=== PATIENT | female | born 1940 | race Caucasian/White ===

== ENCOUNTER 2017-09-08 13:22 | Emergency (ER) ==
[~2017-09-08] VITALS: Ht 170.2 cm; Wt 75.0 kg
[2017-09-08 13:24] VITALS: BP 194/88; PULSE 52; RESP 16; TEMP 97.9
[2017-09-08] MEDS ORDERED: SODIUM CHLOR 0.9% 1000 ML INJ 1,000 ML IV ONE (13:35)
--- NOTE | 2017-09-08 13:40 | PD ---
HPI Chief Complaint: Cardiac Complaint Time Seen by Provider: 13:31 Travel History International Travel<30 days: No Contact w/Intl Traveler<30days: No Traveled to known affect area: No History of Present Illness HPI The patient is a 77-year-old female who presents to the emergency department via EMS after near syncopal episode. The patient was sitting on the toilet, with a toilet seat clothes, while her daughter fixed her hair. The patient and her daughter had planned on going shopping. However, the patient was sitting when she suddenly became diaphoretic, nauseated, and felt like she was going to pass out. The patient denies any actual loss of consciousness, states she became nauseated and diaphoretic and when fire rescue arrived they noted that the patient's blood pressure was low and her heart rate was in the 50s. When EMS arrived they stated that the patient's heart rate would had normalized and her blood pressure had normalized and her symptoms had resolved. The patient denied any chest pain or shortness of breath. The patient was called a STEMI in the field for left bundle-branch block, unsure if the patient has a history of left bundle-branch block. The patient does have a history of previous CVA, hypertension, and hyperlipidemia. Upon arrival the patient denies any chest pain, shortness of breath, and states her symptoms including nausea and diaphoresis have resolved. PFSH Past Medical History High Cholesterol: Yes Cerebrovascular Accident: Yes Hypertension: Yes Past Surgical History Appendectomy: Yes Social History Alcohol Use: No Tobacco Use: No Substance Use: No Allergies-Medications (Allergen,Severity, Reaction): Coded Allergies: No Known Allergies (Unverified , 09/08/17) Reported Meds & Prescriptions Reported Meds & Active Scripts Active Reported Atorvastatin (Atorvastatin Calcium) Unknown Strength Tab Unknown Dose PO HS Xanax (Alprazolam) 0.5 Mg Tab 0.5 Mg PO HS Xanax (Alprazolam) 0.25 Mg Tab 0.25 Mg PO BID Coreg (Carvedilol) 6.25 Mg Tab 6.25 Mg PO BID Aspirin 81 Mg Chew 81 Mg CHEW DAILY B-12 (Cyanocobalamin) 1,000 Mcg Subl 1,000 Mcg SL DAILY Vitamin D3 (Cholecalciferol) 5,000 Unit Cap 5,000 Units PO DAILY Calcium 500 +D (Calcium Carbonate-Cholecalciferol) 500-400 Mg-Unit Tab 1 Tab PO DAILY Review of Systems Except as stated in HPI: all other systems reviewed are Neg General / Constitutional: No: Fever HENT: No: Lightheadedness Cardiovascular: Positive: Diaphoresis, Syncope (near-syncope), No: Chest Pain or Discomfort, Palpitations, Irregular Rhythm, Tachycardia Respiratory: No: Shortness of Breath Gastrointestinal: Positive: Nausea, No: Vomiting, Abdominal Pain Neurologic: Positive: Syncope (near-syncope), No: Dizziness Physical Exam Narrative GENERAL: Awake, alert, 77-year-old female who appears her stated age and is in no acute respiratory distress. SKIN: Focused skin assessment warm/dry. HEAD: Atraumatic. Normocephalic. EYES: No injection or drainage. ENT: No nasal bleeding or discharge. Mucous membranes pink and moist. NECK: Trachea midline. No JVD. CARDIOVASCULAR: Regular rate and rhythm. No murmur appreciated. RESPIRATORY: No accessory muscle use. Clear to auscultation. Breath sounds equal bilaterally. GASTROINTESTINAL: Abdomen soft, non-tender, nondistended. No rebound tenderness. MUSCULOSKELETAL: No obvious deformities. No clubbing. No cyanosis. No edema. NEUROLOGICAL: Awake and alert. No obvious cranial nerve deficits. Motor grossly within normal limits. Normal speech. Nonfocal. PSYCHIATRIC: Appropriate mood and affect; insight and judgment normal. Data Data Last Documented VS Vital Signs Date Time Temp Pulse Resp B/P (MAP) Pulse Ox O2 Delivery O2 Flow Rate FiO2 09/08/17 15:05 55 20 216/83 (127) 98 Room Air 09/08/17 13:24 97.9 Orders Orders Complete Blood Count With Diff (09/08/17 13:35) Comprehensive Metabolic Panel (09/08/17 13:35) Magnesium (Mg) (09/08/17 13:35) Ckmb (Isoenzyme) Profile (09/08/17 13:35) Troponin I (09/08/17 13:35) Chest, Single Ap (09/08/17 13:35) Ecg Monitoring (09/08/17 13:35) Iv Access Insert/Monitor (09/08/17 13:35) Oximetry (09/08/17 13:35) Sodium Chloride 0.9% Flush (Ns Flush) (09/08/17 13:45) Sodium Chlor 0.9% 1000 Ml Inj (Ns 1000 M (09/08/17 13:35) Orthostatic Vital Signs (09/08/17 13:35) Ondansetron Inj (Zofran Inj) (09/08/17 13:45) Electrocardiogram (09/08/17 13:27) Labs Laboratory Tests Test 09/08/17 13:50 White Blood Count 7.3 TH/MM3 Red Blood Count 4.37 MIL/MM3 Hemoglobin 12.6 GM/DL Hematocrit 36.6 % Mean Corpuscular Volume 83.9 FL Mean Corpuscular Hemoglobin 28.9 PG Mean Corpuscular Hemoglobin Concent 34.5 % Red Cell Distribution Width 13.4 % Platelet Count 197 TH/MM3 Mean Platelet Volume 9.3 FL Neutrophils (%) (Auto) 51.4 % Lymphocytes (%) (Auto) 38.4 % Monocytes (%) (Auto) 8.4 % Eosinophils (%) (Auto) 1.1 % Basophils (%) (Auto) 0.7 % Neutrophils # (Auto) 3.7 TH/MM3 Lymphocytes # (Auto) 2.8 TH/MM3 Monocytes # (Auto) 0.6 TH/MM3 Eosinophils # (Auto) 0.1 TH/MM3 Basophils # (Auto) 0.1 TH/MM3 CBC Comment DIFF FINAL Differential Comment Blood Urea Nitrogen 22 MG/DL Creatinine 0.83 MG/DL Random Glucose 91 MG/DL Total Protein 6.8 GM/DL Albumin 3.6 GM/DL Calcium Level 9.0 MG/DL Magnesium Level 2.2 MG/DL Alkaline Phosphatase 90 U/L Aspartate Amino Transf (AST/SGOT) 22 U/L Alanine Aminotransferase (ALT/SGPT) 22 U/L Total Bilirubin 0.7 MG/DL Sodium Level 138 MEQ/L Potassium Level 3.8 MEQ/L Chloride Level 104 MEQ/L Carbon Dioxide Level 27.7 MEQ/L Anion Gap 6 MEQ/L Estimat Glomerular Filtration Rate 67 ML/MIN Total Creatine Kinase 93 U/L Troponin I LESS THAN 0.02 NG/ML MDM Medical Decision Making Medical Screen Exam Complete: Yes Emergency Medical Condition: Yes Medical Record Reviewed: Yes Interpretation(s) EKG reveals sinus bradycardia with a heart rate of 53. Left bundle-branch block. No old EKG to compare. Laboratory Tests Test 09/08/17 13:50 White Blood Count 7.3 TH/MM3 Red Blood Count 4.37 MIL/MM3 Hemoglobin 12.6 GM/DL Hematocrit 36.6 % Mean Corpuscular Volume 83.9 FL Mean Corpuscular Hemoglobin 28.9 PG Mean Corpuscular Hemoglobin Concent 34.5 % Red Cell Distribution Width 13.4 % Platelet Count 197 TH/MM3 Mean Platelet Volume 9.3 FL Neutrophils (%) (Auto) 51.4 % Lymphocytes (%) (Auto) 38.4 % Monocytes (%) (Auto) 8.4 % Eosinophils (%) (Auto) 1.1 % Basophils (%) (Auto) 0.7 % Neutrophils # (Auto) 3.7 TH/MM3 Lymphocytes # (Auto) 2.8 TH/MM3 Monocytes # (Auto) 0.6 TH/MM3 Eosinophils # (Auto) 0.1 TH/MM3 Basophils # (Auto) 0.1 TH/MM3 CBC Comment DIFF FINAL Differential Comment Blood Urea Nitrogen 22 MG/DL Creatinine 0.83 MG/DL Random Glucose 91 MG/DL Total Protein 6.8 GM/DL Albumin 3.6 GM/DL Calcium Level 9.0 MG/DL Magnesium Level 2.2 MG/DL Alkaline Phosphatase 90 U/L Aspartate Amino Transf (AST/SGOT) 22 U/L Alanine Aminotransferase (ALT/SGPT) 22 U/L Total Bilirubin 0.7 MG/DL Sodium Level 138 MEQ/L Potassium Level 3.8 MEQ/L Chloride Level 104 MEQ/L Carbon Dioxide Level 27.7 MEQ/L Anion Gap 6 MEQ/L Estimat Glomerular Filtration Rate 67 ML/MIN Total Creatine Kinase 93 U/L Troponin I LESS THAN 0.02 NG/ML Chest x-ray reveals no acute cardio pulmonary disease. Differential Diagnosis Differential diagnosis includes near-syncope, arrhythmia, dysrhythmia, vasovagal syncope, cardiogenic syncope, ACS, electrolyte abnormality, dehydration. Narrative Course IV was established, labs are drawn and sent, and the patient was placed on cardiac telemetry monitoring and continuous pulse oximetry monitoring. EKG was ordered and interpreted. Orthostatic vital signs were obtained. The patient was administered IV fluids and Zofran. EKG reveals left bundle branch block. Orthostatic vital signs are unremarkable. Patient's laboratory evaluation is unremarkable. The patient is currently asymptomatic. It appears the patient had a vagal type near-syncope, denied any chest pain. She denies any chest pain upon arrival to troponin is negative. I had a discussion with the patient , she preferred to be discharged home. She will be discharged home with family. His advised return if symptoms worsen or progress. The patient was able to ambulate. The patient may benefit from outpatient echocardiogram, however, is no audible murmur and no history of aortic stenosis. Diagnosis Primary Impression: Near syncope Admitting Information Admitting Physician Requests: Observation Patient Instructions: General Instructions Additional Instructions: Please provide a patient a copy of her EKG and lab results at discharge. Follow -up with a primary physician. Return if symptoms worsen or progress. Med/Other Pt SpecificInfo: No Change to Meds Disposition: 01 DISCHARGE HOME Condition: Stable Luis Fernando Hernandes MD Sep 08, 2017 13:40
[2017-09-08] MEDS ORDERED: SODIUM CHLORIDE 0.9% FLUSH 10 ML FLUSH IVF PRN (13:45)
[2017-09-08] MEDS ORDERED: ONDANSETRON HCL 4 MG/2 ML VIAL IV PUSH ONE (13:45)
[2017-09-08] MEDS ORDERED: ATOR10TA15 PO (13:51)
[2017-09-08] MEDS ORDERED: CYAN100025 SL (13:51)
[2017-09-08] MEDS ORDERED: ASPI-516 CHEW (13:51)
[2017-09-08] MEDS ORDERED: CARV6.25 PO (13:51)
[2017-09-08] MEDS ORDERED: ALPR.25 PO (13:51)
[2017-09-08] MEDS ORDERED: CALC1TAB12 PO (13:51)
[2017-09-08] MEDS ORDERED: CHOL5000 PO (13:51)
[2017-09-08] MEDS ORDERED: ALPR.5 PO (13:51)
[2017-09-08 13:55] VITALS: BP 172/77; RESP 18
[2017-09-08 13:56] VITALS: BP_SYST 158; BP_SYST 190; BP_DIAS 71; BP_DIAS 79; RESP 18; RESP 20
[2017-09-08 14:08] LABS: AUTOMATED NEUTROPHIL # 3.7 TH/MM3 (1.8-7.7); BASOPHIL # 0.1 TH/MM3 (0-0.2); BASOPHIL % 0.7 % (0.0-2.0); EOSINOPHIL # 0.1 TH/MM3 (0-0.4); EOSINOPHIL % 1.1 % (0.0-4.0); HEMATOCRIT 36.6 % (35.0-46.0); HEMOGLOBIN 12.6 GM/DL (11.6-15.3); LYMPH % 38.4 % (9.0-44.0); LYMPHOCYTE # 2.8 TH/MM3 (1.0-4.8); MEAN CELL VOLUME 83.9 FL (80.0-100.0); MEAN CORPUSCULAR HEMOGLOBIN 28.9 PG (27.0-34.0); MEAN CORPUSCULAR HGB CONC 34.5 % (32.0-36.0); MEAN PLATELET VOLUME 9.3 FL (7.0-11.0); MONO % 8.4 % (0.0-8.0); MONOCYTE # 0.6 TH/MM3 (0-0.9); NEUT % 51.4 % (16.0-70.0); PLATELET COUNT 197 TH/MM3 (150-450); RED BLOOD COUNT 4.37 MIL/MM3 (4.00-5.30); RED CELL DISTRIBUTION WIDTH 13.4 % (11.6-17.2); WHITE BLOOD COUNT 7.3 TH/MM3 (4.0-11.0)
--- NOTE | 2017-09-08 14:10 | RADRPT ---
EXAM DATE/TIME: 09/08/2017 13:54 [facility] COMPARISON: No previous studies available for comparison. INDICATIONS : Chest pain starting today MEDICAL HISTORY : None. SURGICAL HISTORY : None. ENCOUNTER: Initial ACUITY: 1 day PAIN SCORE: 5/10 LOCATION: Bilateral chest FINDINGS: A single view of the chest demonstrates the lungs to be symmetrically aerated without evidence of mas s, infiltrate or effusion. The cardiomediastinal contours are unremarkable. Osseous structures are intact. CONCLUSION: 1. No acute cardiopulmonary disease. Alan Ji MD on September 08, 2017 at 14:08 Board Certified Radiologist. This report was verified electronically.
[2017-09-08 14:28] LABS: ALBUMIN 3.6 GM/DL (3.4-5.0); ALT (GPT) 22 U/L (10-53); AST (GOT) 22 U/L (15-37); BICARBONATE 27.7 MEQ/L (21.0-32.0); BLOOD UREA NITROGEN 22 MG/DL (7-18); CHLORIDE 104 MEQ/L (98-107); CREATININE 0.83 MG/DL (0.50-1.00); GLOMERULAR FILTRATION RATE 67 ML/MIN (>89); GLUCOSE,RANDOM 91 MG/DL (74-106); MAGNESIUM 2.2 MG/DL (1.5-2.5); SODIUM (NA) 138 MEQ/L (136-145)
[2017-09-08 14:33] LABS: ALKALINE PHOSPHATASE 90 U/L (45-117); TOTAL BILIRUBIN ADULT 0.7 MG/DL (0.2-1.0); TOTAL PROTEIN 6.8 GM/DL (6.4-8.2); TROPONIN I LESS THAN 0.02 NG/ML (0.02-0.05)
[2017-09-08 15:02] VITALS: O2SAT 99
[2017-09-08 15:05] VITALS: BP 216/83; PULSE 55; RESP 20; O2SAT 98
[2017-09-08 16:09] VITALS: BP 190/78
--- NOTE | 2017-09-09 15:49 | EKG ---
Date Performed: 09/08/2017 Time Performed: 13:27:32 PTAGE: 77 years EKG: SINUS BRADYCARDIA MARKED LEFT AXIS DEVIATION LEFT BUNDLE BRANCH BLOCK ABNORMAL ECG Prolonge d corrected QT interval NO PREVIOUS TRACING DOCTOR: Neo Cadet Interpretating Date/Time 09/09/2017 15:48:00
== END 2017-09-08 16:13 | disposition home or self-care (01) ==
LOC: NEPE 13:22
DX: R55 Syncope and collapse (principal); I44.7 Left bundle-branch block, unspecified; R00.1 Bradycardia, unspecified; I10 Essential (primary) hypertension; E78.5 Hyperlipidemia, unspecified; E78.00 Pure hypercholesterolemia, unspecified; R94.31 Abnormal electrocardiogram [ECG] [EKG]; I45.81 Long QT syndrome; Z86.73 Personal history of transient ischemic attack (TIA), and cerebral infarction without residual deficits
CPT/HCPCS: 71045; 80053; 82550; 83735; 84484; 85025; 93005; 96360; 96361; 99285; J7030